=== PATIENT | female | born 1930 | race Caucasian/White ===

== ENCOUNTER 2018-04-16 01:07 | Emergency (ER) | payer OTHER ==
[2018-04-16 01:18] VITALS: BMI 16.0
--- NOTE | 2018-04-16 03:00 | PDOC ---
History of Present Illness - General Chief Complaint: Injury Stated Complaint: FALL - History of Present Illness Initial Comments: Patient is an 87 year old female, with a significant past medical history of chronic systolic chf, asthma and moderate dementia, who presents to the emergency department after falling from wheelchair at [facility]. Pt only complaining of pain in throat and upper chest. Of note, pt very poor historian, secondary to dementia. Pt endorses worsening pain in throat over last day, stating "something in my throat doesn't feel right", worsened by swallowing and eating. Pt also endorses BL upper chest pain. Pt also endorses a recent fall one week ago at her senior living and new [employer] cough. Does not recall falling from wheelchair today. Patient denies any shortness of breath, headache or dizziness. Denies fever, chills, nausea, vomiting, diarrhea and constipation. Denies dysuria, frequency, urgency and hematuria. Allergies: None Past surgical history: None Social History: Social drinker "dont drink too much"; denies drug and alcohol abuse PMD: Unknown 04/16/18 03:00 Past History - Past Medical History Allergies/Adverse Reactions: Allergies Allergy/AdvReac Type Severity Reaction Status Date / Time No Known Allergies Allergy Verified 04/16/18 01:18 Home Medications: Ambulatory Orders Amiodarone HCl [Cordarone -] 200 mg PO DAILY 04/16/18 Cholecalciferol (Vitamin D3) [Vitamin D3 -] 1,000 unit PO DAILY 04/16/18 Cyanocobalamin [Vitamin B12 -] 1,000 mcg PO DAILY 04/16/18 Furosemide [Lasix] 20 mg PO DAILY 04/16/18 Metoprolol Succinate [Toprol Xl -] 50 mg PO DAILY 04/16/18 Mirtazapine 7.5 mg PO HS 04/16/18 - Suicide/Smoking/Psychosocial Hx Smoking History: Never smoked Have you smoked in the past 12 months: No Information on smoking cessation initiated: No Hx Alcohol Use: No Drug/Substance Use Hx: No Review of Systems - Review of Systems Comments:: GENERAL/CONSTITUTIONAL: No fever or chills. No weakness. HEAD, EYES, EARS, NOSE AND THROAT: +dysphagia; No change in vision. No ear pain or discharge. No sore throat. CARDIOVASCULAR: + upper chest pain; no shortness of breath RESPIRATORY: + cough; no wheezing, or hemoptysis. GASTROINTESTINAL: No nausea, vomiting, diarrhea or constipation. GENITOURINARY: No dysuria, frequency, or change in urination. MUSCULOSKELETAL: No joint or muscle swelling or pain. No neck or back pain. SKIN: No rash NEUROLOGIC: No headache, vertigo, loss of consciousness, or change in strength/ sensation. ENDOCRINE: No increased thirst. No abnormal weight change HEMATOLOGIC/LYMPHATIC: No anemia, easy bleeding, or history of blood clots. ALLERGIC/IMMUNOLOGIC: No hives or skin allergy. 04/16/18 03:00 *Physical Exam - Vital Signs Last Vital Signs Temp Pulse Resp BP Pulse Ox 97.4 F L 56 L 18 149/77 96 04/16/18 01:15 04/16/18 01:15 04/16/18 01:15 04/16/18 01:15 04/16/18 01:15 - Physical Exam Comments: GENERAL: Elderly, frail woman, A&Ox1, in no acute distress; wearing C-collar HEAD: No signs of trauma, normocephalic, atraumatic EYES: PERRLA, EOMI, sclera anicteric, conjunctiva clear ENT: Auricles normal inspection, hearing grossly normal, nares patent, oropharynx clear without exudates. Moist mucosa NECK: Normal ROM, supple, no lymphadenopathy, JVD, or masses LUNGS: Trace upper airway rhonchi. No distress, speaks full sentences HEART: Regular rate and rhythm, normal S1 and S2, no murmurs, rubs or gallops, peripheral pulses normal and equal bilaterally. ABDOMEN: Soft, nontender, normoactive bowel sounds. No guarding, no rebound. No masses EXTREMITIES : BL bruising on anterior shins. R shank erythematous with vesicular rash on anterior ankle. Normal inspection, Normal range of motion, no edema. No clubbing or cyanosis. NEUROLOGICAL: Cranial nerves II through XII grossly intact. Normal speech, normal gait, no focal sensorimotor deficits SKIN: Warm, Dry, normal turgor, no rashes or lesions noted 04/16/18 03:00 ED Treatment Course - LABORATORY CBC & Chemistry Diagram: 04/16/18 04:45 04/16/18 04:45 *DC/Admit/Observation/Transfer Diagnosis at time of Disposition: Fall Qualifiers: Encounter type: initial encounter Qualified Code(s): W19.XXXA - Unspecified fall, initial encounter - Discharge Dispostion Disposition: HOME Condition at time of disposition: Fair Decision to Admit order: No - Referrals Referrals: Royal Redmond [Primary Care Provider] - 1 week - Patient Instructions Printed Discharge Instructions: How to Prevent Falls Additional Instructions: During your visit to the [facility] ED, you were evaluated a fall. You received standard lab tests and imaging of your head and neck, which was negative. You are being discharged home with outpatient follow-up with your primary care provider. Please take tylenol 650mg every four hours if you experience pain. If you experience any of the following symptoms, please return to the ED: - Changes in vision, worsening headache, numbness/weakness in any extremities, or persistent dizziness/loss of consciousness - Any new or concerning symptoms - Post Discharge Activity
[2018-04-16 04:55] LABS: BASO % 0.5 % (0-2.0); EOS % 2.4 % (0-4.5); HEMATOCRIT 40.5 % (32.4-45.2); HEMOGLOBIN 13.3 GM/dL (10.7-15.3); LYMPH % 8.1 % (8-40); MCH 29.8 pg (25.7-33.7); MEAN CELL VOLUME 90.4 fl (80-96); MEAN PLT VOLUME 8.2 fl (7.5-11.1); MONO % 7.6 % (3.8-10.2); NEUT % 81.4 % (42.8-82.8); PLATELET COUNT 389 K/MM3 (134-434); RBC 4.47 M/mm3 (3.60-5.2); RDW 14.6 % (11.6-15.6)
[2018-04-16 05:07] LABS: INR 1.05 (0.82-1.09); PROTHROMBIN TIME (PATIENT) 11.9 SEC (9.7-13.0)
[2018-04-16 05:19] LABS: ALK PHOS 82 U/L (45-117); ANION GAP 6 (8-16); BILIRUBIN,TOTAL 0.3 mg/dL (0.2-1.0); BLOOD UREA NITROGEN 16 mg/dL (7-18); CALCIUM 8.7 mg/dL (8.5-10.1); CHLORIDE 93 mmol/L (98-107); CO2 33 mmol/L (21-32); CREATININE 0.6 mg/dL (0.55-1.02); GLUCOSE,RANDOM 81 mg/dL (74-106); POTASSIUM 4.3 mmol/L (3.5-5.1); SGOT/AST 28 U/L (15-37); SGPT/ALT 12 U/L (12-78); SODIUM 132 mmol/L (136-145); TOT PROT 6.9 g/dl (6.4-8.2)
[2018-04-16 05:26] LABS: URINE APPEARANCE CLEAR; URINE BILIRUBIN NEGATIVE (<2.0 mg/dL); URINE COLOR LTYELLOW; URINE GLUCOSE (UA) NEGATIVE (NEGATIVE); URINE KETONE NEGATIVE (NEGATIVE); URINE LEUK ESTERASE NEGATIVE (NEGATIVE); URINE NITRITE NEGATIVE (NEGATIVE); URINE PROTEIN NEGATIVE (NEGATIVE); URINE UROBILINOGEN NEGATIVE mg/dL (0.2-1.0)
[2018-04-16 09:13] VITALS: BP 144/68; PULSE 61; TEMP 98
== END 2018-04-16 09:13 | disposition home or self-care (01) ==
LOC: JER 01:07
DX: S29.8XXA Other specified injuries of thorax, initial encounter (principal); W05.0XXA Fall from non-moving wheelchair, initial encounter; Y93.89 Activity, other specified; Y92.098 Other place in other non-institutional residence as the place of occurrence of the external cause; Y99.8 Other external cause status; I50.22 Chronic systolic (congestive) heart failure; J45.909 Unspecified asthma, uncomplicated; F03.90 Unspecified dementia, unspecified severity, without behavioral disturbance, psychotic disturbance, mood disturbance, and anxiety
CPT/HCPCS: 36415; 70450-TC; 72125-TC; 80053; 81003; 85025; 85610; 99282-25

== ENCOUNTER 2018-06-25 01:48 | Emergency (ER) | payer OTHER ==
[2018-06-25 01:58] VITALS: TEMP 98; BMI 20.1
--- NOTE | 2018-06-25 02:32 | PDOC ---
History of Present Illness - General Chief Complaint: Injury Stated Complaint: FALL Time Seen by Provider: 06/25/18 02:03 History Source: Old Records Exam Limitations: Dementia - History of Present Illness Initial Comments: 06/25/18 02:26 HISTORY OF PRESENT ILLNESS: This is an 87-year-old woman past medical history of systolic heart failure, dementia, Alzheimer's disease, A. fib, Graves' disease, COPD who presents emergency Department from [facility] status post fall. I spoke with Ankita the nurse on the unit who states the patient tried to stand from her wheelchair when she lost her balance fell and struck her head on the floor. This was a witnessed fall as an aide was with the patient at that time. The aide stated the patient did not lose consciousness. The aide stated the patient was immediately verbal after fall and was vocalizing and her usual confused baseline. No recent travel or sick contacts. PAST MEDICAL HISTORY: systolic heart failure, dementia, Alzheimer's disease, A. fib, Grave's disease, COPD SURGICAL HISTORY: Denies ALLERGIES: No known drug allergies ROS- Unable to perform due to dementia PHYSICAL EXAM General Appearance: cachectic, appropriately dressed. No apparent distress, no intoxication. HEENT: EOMI, PERRLA, normal ENT inspection, normal voice, TMs normal, pharynx normal. No conjunctival pallor. No photophobia, scleral icterus. Neck: Supple. Trachea midline. No tenderness, rigidity, carotid bruit, stridor , lymphadenopathy, or thyromegaly. Respiratory/Chest: Lungs trace rhonchii left upper. No shortness of breath, chest tenderness, respiratory distress, accessory muscle use. No crackles, rales , rhonchi, stridor, wheezing, dullness Cardiovascular: irregular. S1, S2. No JVD, murmur, bradycardia, tachycardia. Vascular Pulses: Dorsalis-Pedis (R): 2+, Dorsalis-Pedis (L): 2+ Gastrointestinal/Abdominal: Normal bowel sounds. Abdomen soft, non-distended. No tenderness or rebound tenderness. No organomegaly, pulsatile mass, guarding , hernia, hepatomegaly, splenomegaly. Lymphatic: No adenopathy, tenderness. Musculoskeletal/Extremities: Normal inspection. FROM of all extremities, normal capillary refill. Pelvis Stable. No CVA tenderness. No tenderness to extremities, pedal edema, swelling, erythema or deformity. Integumentary: Venous stasis changes to BLE. Stage 2 sacral ulcer present upon arrival;. Neurologic: community sports coordinator II-XII intact. Alert but confused. Appropriate mood/affect. Motor strength 5/5. No appreciable EOM palsy, facial droop or sensory deficit. Patient presents with a MOLST and is DNR/DNI. Patient not to receive IV fluids but can receive antibiotics for treatment. Comfort measures only. Past History - Past Medical History Allergies/Adverse Reactions: Allergies Allergy/AdvReac Type Severity Reaction Status Date / Time No Known Allergies Allergy Verified 06/25/18 01:55 Home Medications: Ambulatory Orders Amiodarone HCl [Cordarone -] 200 mg PO DAILY 04/16/18 Cholecalciferol (Vitamin D3) [Vitamin D3 -] 1,000 unit PO DAILY 04/16/18 Cyanocobalamin [Vitamin B12 -] 1,000 mcg PO DAILY 04/16/18 Furosemide [Lasix] 20 mg PO DAILY 04/16/18 Metoprolol Succinate [Toprol Xl -] 50 mg PO DAILY 04/16/18 Mirtazapine 15 mg PO HS 04/16/18 COPD: No HTN: Yes - Suicide/Smoking/Psychosocial Hx Smoking History: Never smoked Have you smoked in the past 12 months: No Information on smoking cessation initiated: No Hx Alcohol Use: No Drug/Substance Use Hx: No *Physical Exam - Vital Signs Last Vital Signs Temp Pulse Resp BP Pulse Ox 98.0 F 65 20 144/72 95 06/25/18 01:55 06/25/18 01:55 06/25/18 01:55 06/25/18 01:55 06/25/18 01:55 ED Treatment Course - LABORATORY CBC & Chemistry Diagram: 06/25/18 05:50 06/25/18 05:50 Medical Decision Making - Medical Decision Making 06/25/18 02:43 A/P: 87-year-old woman for evaluation status post fall No obvious head trauma noted Patient is confused at baseline- unable to assess mental status due to underlying condition Lungs with trace rhonchii Left upper Week nonproductive cough noted during exam Heart rate irregular. S1 and S2 present. No murmur, rub or gallop noted. Abdomen soft nontender nondistended Pelvis stable No tenderness to palpation over bilateral trochanters Stage 2 sacral ulcer present measuring 6cm circular Given patient's inability to cooperate with exam I will obtain a head CT to rule out any age cranial pathology. I will also obtain a CT of the C-spine to evaluate for neck fractures given head trauma. Lungs clear to auscultation bilaterally with patient with dry cough during exam I will perform a chest x-ray to rule out pneumonia, pneumothorax, volume overload for potential reason for fall. 06/25/18 06:52 Laboratory testing unremarkable for BUN-[address]. U[address] of the head as read by imaging steward/stewardess second: No intracranial mass or bleed. Chronic-appearing involutional changes of aging. CT of the C-spine as read by imaging steward/stewardess second: Degenerative changes in the cervical spine with no fracture. Pleural parenchymal fibrosis at the left pulmonary apex. *DC/Admit/Observation/Transfer Diagnosis at time of Disposition: Fall Qualifiers: Encounter type: initial encounter Qualified Code(s): W19.XXXA - Unspecified fall, initial encounter - Discharge Dispostion Disposition: [facility] FAC[facility] Condition at time of disposition: Stable - Referrals Referrals: Royal Redmond [Primary Care Provider] - - Patient Instructions Printed Discharge Instructions: How to Prevent Falls Additional Instructions: Return for difficulty breathing, change in mental status, or any other concerning symptoms. - Post Discharge Activity
[2018-06-25 06:11] LABS: BASO % 0.8 % (0-2.0); EOS % 6.4 % (0-4.5); HEMATOCRIT 35.9 % (32.4-45.2); LYMPH % 7.7 % (8-40); MCH 30.3 pg (25.7-33.7); MCHC 33.4 g/dl (32.0-36.0); MEAN CELL VOLUME 90.7 fl (80-96); MEAN PLT VOLUME 7.8 fl (7.5-11.1); MONO % 6.6 % (3.8-10.2); NEUT % 78.5 % (42.8-82.8); PLATELET COUNT 362 K/MM3 (134-434); RBC 3.96 M/mm3 (3.60-5.2); RDW 13.4 % (11.6-15.6); WHITE BLOOD COUNT 9.9 K/mm3 (4.0-10.0)
[2018-06-25 06:30] LABS: ALBUMIN 2.8 g/dl (3.4-5.0); ALK PHOS 78 U/L (45-117); ANION GAP 4 (8-16); BILIRUBIN,TOTAL 0.2 mg/dL (0.2-1.0); BLOOD UREA NITROGEN 30 mg/dL (7-18); CALCIUM 8.7 mg/dL (8.5-10.1); CHLORIDE 98 mmol/L (98-107); CO2 34 mmol/L (21-32); CREATININE 0.7 mg/dL (0.55-1.02); GLUCOSE,RANDOM 88 mg/dL (74-106); POTASSIUM 4.5 mmol/L (3.5-5.1); SGOT/AST 28 U/L (15-37); SGPT/ALT 15 U/L (12-78); SODIUM 136 mmol/L (136-145); TOT PROT 6.5 g/dl (6.4-8.2)
--- NOTE | 2018-06-25 07:16 | PDOC ---
*Physical Exam - Vital Signs Last Vital Signs Temp Pulse Resp BP Pulse Ox 98.0 F 65 20 144/72 95 06/25/18 01:55 06/25/18 01:55 06/25/18 01:55 06/25/18 01:55 06/25/18 01:55 ED Treatment Course - LABORATORY CBC & Chemistry Diagram: 06/25/18 05:50 06/25/18 05:50 - ADDITIONAL ORDERS Additional order review: Laboratory Results 06/25/18 05:50 Sodium 136 Potassium 4.5 Chloride 98 Carbon Dioxide 34 H Anion Gap 4 L BUN 30 H Creatinine 0.7 Creat Clearance w eGFR > 60 Random Glucose 88 Calcium 8.7 Total Bilirubin 0.2 AST 28 ALT 15 Alkaline Phosphatase 78 Total Protein 6.5 Albumin 2.8 L 06/25/18 05:50 RBC 3.96 MCV 90.7 MCHC 33.4 RDW 13.4 MPV 7.8 Neutrophils % 78.5 Lymphocytes % 7.7 L Monocytes % 6.6 Eosinophils % 6.4 H D Basophils % 0.8 Medical Decision Making - Medical Decision Making 06/25/18 09:07 Signout received from ORACIO Sanderson. Briefly, this is an 87-year-old female assisted living resident with dementia, non-ambulatory at baseline, sent from her facility following a fall. Head and c-spine CTs are negative. Her CXR shows lef tpulmonary and pleural changes (with possible bronchiectasis), likely chronic in nature. She is asymptomatic from that perspective. UA is negative. The patient's goals of care are comfort measures only, as documented in her chart. She feels well this morning and denies all complaints (according to facility staff, "she is able to make her needs known"). Will return to [facility]. Discussed with clinical staff at receiving facility. *DC/Admit/Observation/Transfer Diagnosis at time of Disposition: Fall Qualifiers: Encounter type: initial encounter Qualified Code(s): W19.XXXA - Unspecified fall, initial encounter - Discharge Dispostion Disposition: [facility] FACILITY Condition at time of disposition: Stable Decision to Admit order: No - Referrals Referrals: Royal Redmond [Primary Care Provider] - - Patient Instructions Printed Discharge Instructions: How to Prevent Falls Additional Instructions: Return for difficulty breathing, change in mental status, or any other concerning symptoms. - Post Discharge Activity
[2018-06-25 07:49] LABS: URINE APPEARANCE CLEAR; URINE BILIRUBIN NEGATIVE (<2.0 mg/dL); URINE COLOR LTYELLOW; URINE GLUCOSE (UA) NEGATIVE (NEGATIVE); URINE KETONE NEGATIVE (NEGATIVE); URINE LEUK ESTERASE NEGATIVE (NEGATIVE); URINE NITRITE NEGATIVE (NEGATIVE); URINE PROTEIN NEGATIVE (NEGATIVE); URINE UROBILINOGEN NEGATIVE mg/dL (0.2-1.0)
[2018-06-25 11:45] VITALS: BP 123/74; PULSE 69
--- NOTE | 2018-06-29 10:31 | EKG ---
Test Reason : Blood Pressure : / mmHG Vent. Rate : 068 BPM Atrial Rate : 068 BPM P-R Int : 162 ms QRS Dur : 090 ms QT Int : 436 ms P-R-T Axes : 089 108 092 degrees QTc Int : 463 ms NORMAL SINUS RHYTHM RIGHTWARD AXIS PULMONARY DISEASE PATTERN NONSPECIFIC ST AND T WAVE ABNORMALITY ABNORMAL ECG NO PREVIOUS ECGS AVAILABLE Confirmed by GABINO STOLL MD ([id number]) on 06/29/2018 10:31:14 AM Referred By: Confirmed By:GABINO STOLL MD
== END 2018-06-25 11:36 ==
LOC: JER 01:48
DX: Z04.3 Encounter for examination and observation following other accident (principal); W05.0XXA Fall from non-moving wheelchair, initial encounter; Y93.89 Activity, other specified; Y92.218 Other school as the place of occurrence of the external cause; I48.91 Unspecified atrial fibrillation; G30.9 Alzheimer's disease, unspecified; F02.80 Dementia in other diseases classified elsewhere, unspecified severity, without behavioral disturbance, psychotic disturbance, mood disturbance, and anxiety; J44.9 Chronic obstructive pulmonary disease, unspecified; E05.00 Thyrotoxicosis with diffuse goiter without thyrotoxic crisis or storm; Z99.89 Dependence on other enabling machines and devices
CPT/HCPCS: 36415; 70450-TC; 71045-TC-FY; 72125-TC; 80053; 81003; 85025; 87086; 93005; 93010; 99283-25